=== PATIENT | female | born 1980 | race Caucasian/White ===

== ENCOUNTER 2018-01-01 21:04 | Emergency (ER) | payer OTHER ==
[~2018-01-01] VITALS: Ht 157.5 cm; Wt 64.5 kg
[2018-01-01 22:47] LABS: APPEARANCE CLEAR ((CLEAR)); BILIRUBIN NEGATIVE; BLOOD NEGATIVE; COLOR STRAW ((YELLOW)); GLUCOSE (STRIP) NEGATIVE; KETONES NEGATIVE; LEUKOCYTES NEGATIVE; NITRITE NEGATIVE; PROTEIN (STRIP) NEGATIVE; SPECIFIC GRAVITY 1.013 (1.000-1.030); UROBILINOGEN 0.2 MG/DL (0.2-1.0)
[2018-01-01 22:56] LABS: HEMATOCRIT 36.3 % (36.0-46.0); HEMOGLOBIN 12.8 G/DL (11.9-15.5); MCH 32.8 PG (29.0-34.0); MCHC 35.3 G/DL (30.0-36.0); MCV 93.1 FL (83-99); PLATELET COUNT 197 K/uL (156-360); RBC DIS.WIDTH-CV 12.4 % (11.8-14.6); RBC DIS.WIDTH-SD 42.4 % (39-53); WHITE BLOOD COUNT 8.8 K/uL (4.1-10.2)
[2018-01-01 23:14] LABS: CHLORIDE 104 mEq/L (99-109); POTASSIUM 3.9 mEq/L (3.7-5.4); SODIUM 138 mEq/L (136-147)
[2018-01-01 23:16] LABS: GLUCOSE 85 mg/dL (70-99)
[2018-01-01 23:20] LABS: UREA NITROGEN (BUN) 16 mg/dL (9-23)
[2018-01-01 23:22] LABS: CREATINE KINASE 51 IU/L (1-294)
[2018-01-01 23:31] LABS: GFR ESTIMATE (CALCULATED) > 59 mL/min/
[2018-01-01] MEDS ORDERED: VISTARIL50 MG PO (23:41)
[2018-01-01] MEDS ORDERED: INDOCIN50 MG PO (23:41)
[2018-01-01 23:57] VITALS: BP 117/88
== END 2018-01-01 23:58 | disposition home or self-care (01) ==
LOC: EME 21:04
PROVIDERS: Physician Assistant
DX: T75.4XXA Electrocution, initial encounter (principal); W86.8XXA Exposure to other electric current, initial encounter; M62.838 Other muscle spasm; F43.0 Acute stress reaction; F41.9 Anxiety disorder, unspecified; F32.9 Major depressive disorder, single episode, unspecified; F17.200 Nicotine dependence, unspecified, uncomplicated
CPT/HCPCS: 80048; 81003; 82550; 85027; 93005; 99281; 99284; Q0177